=== PATIENT | female | born 1990 | race African-American/Black ===

== ENCOUNTER → 2018-06-07 | Outpatient (REF) | payer BC | LOC: M LAB REF 13:36 | DX: J02.9 Acute pharyngitis, unspecified (principal) | CPT/HCPCS: 87081 ==

== ENCOUNTER 2021-12-27 19:47 | Emergency (ER) | payer BC, OTHER ==
[~2021-12-27] VITALS: Ht 162.6 cm; Wt 90.9 kg
[2021-12-27 19:48] VITALS: BP 148/84
[2021-12-28] MEDS ORDERED: PROPARACAINE 0.5% OPHTH SOL 15ML OS ONE (00:05)
[2021-12-28] MEDS ORDERED: FLUORESCEIN OPHTH 1 MG STRIP OS ONE (00:05)
[2021-12-28] MEDS ORDERED: POLYSOL OP (00:40)
[2021-12-28] MEDS ORDERED: POLYTRIM OPTH DROPS 10ML OS SCH (06:00)
== END 2021-12-28 01:39 | disposition home or self-care (01) ==
LOC: M ED 19:47
DX: T15.12XA Foreign body in conjunctival sac, left eye, initial encounter (principal); H02.844 Edema of left upper eyelid; X58.XXXA Exposure to other specified factors, initial encounter; Y92.511 Restaurant or cafe as the place of occurrence of the external cause; Y99.0 Civilian activity done for income or pay

== ENCOUNTER 2025-03-10 14:49 | Emergency (ER) | payer BC, OTHER ==
[~2025-03-10] VITALS: Ht 162.6 cm; Wt 96.3 kg
[~2025-03-10 14:49] MED LIST: POLYSOL OP
[2025-03-10 15:51] LABS: KETONE, URINE AUTO RFX TRACE mg/dL (NEGATIVE); MUCUS, URINE RFX MODERATE (NEGATIVE); NITRITE, URINE AUTO RFX NEGATIVE (NEGATIVE); RBC, URINE AUTO RFX 11 /HPF (0-3); SQUAM EPITHELIAL CELL UR AURFX 8 /HPF (0-6)
[2025-03-10 15:53] LABS: BASO # 0.0 10^3/uL (0.0-0.2); BASO % 0.2 % (0.0-1.0); EOS # 0.0 10^3/uL (0.0-0.5); EOS % 0.2 % (0.0-3.0); LYMPH # 1.5 10^3/uL (1.5-5.0); LYMPH % 23.8 % (24.0-44.0); MONO # 0.6 10^3/uL (0.0-0.8); MONO % 8.8 % (2.0-8.0); NEUTROPHILS # 4.3 10^3/uL (1.5-8.5); NEUTROPHILS % 66.8 % (36.0-66.0); PLATELET COUNT, AUTOMATED 201 10^3/uL (150-450)
[2025-03-10 16:06] LABS: LEUKOCYTE ESTERASE UR AUTO RFX 3+ (NEGATIVE)
[2025-03-10 16:07] LABS: WBC, URINE AUTO RFX 45 /HPF (0-3)
[2025-03-10 16:19] LABS: ALT/SGPT 25 U/L (7.0-40); AST/SGOT 29 U/L (<34); CALCIUM LEVEL 8.9 MG/DL (8.5-10.1); CARBON DIOXIDE LEVEL 22 MMOL/L (20-31); CHLORIDE LEVEL 104 MMOL/L (98-107); CREATININE FOR GFR 0.83 MG/DL (0.55-1.30); GLOMERULAR FILTRATION RATE > 90.0 (>60); POTASSIUM SERUM 4.7 MMOL/L (3.5-5.1); SODIUM LEVEL 138 MMOL/L (136-145)
[2025-03-10 16:40] LABS: HCG, SERUM QUALITATIVE NEGATIVE (NEGATIVE)
[2025-03-10] MEDS: cefTRIAXone SOD 1 GM in DEXTROSE 5% (D5W) ADV/MINI-BAG 50 ML IV ONE (17:28)
[2025-03-10] MEDS: KETOROLAC 30 MG/ML 1 ML VIAL IV ONE (17:30)
[2025-03-10] MEDS: ONDANSETRON 4MG 2ML VIAL IV ONE (17:30)
[2025-03-10] MEDS ORDERED: CEFD1CAP9 PO (19:16)
[2025-03-10] MEDS ORDERED: ONDA-282 PO (19:16)
[2025-03-10 19:27] VITALS: BP 119/57; TEMP 98.8; O2SAT 100
== END 2025-03-10 19:30 | disposition home or self-care (01) ==
LOC: M ED 14:49 → EDBD 14:49 → M ED 19:30
DX: N39.0 Urinary tract infection, site not specified (principal); N10 Acute pyelonephritis; F17.210 Nicotine dependence, cigarettes, uncomplicated
CPT/HCPCS: 74176; 80048; 80076; 81001; 83690; 84703; 85025; 87086; 96365; 96366; 96375; 99284; J0696; J1885; J2405

== ENCOUNTER → 2025-04-27 | Outpatient (REF) | payer BC ==
[~2025-04-27] MED LIST changes: +CEFD1CAP9 PO; +ONDA-282 PO
[2025-04-27 12:54] LABS: CREATININE, URINE 121.9 MG/DL; MALB URINE SIEMENS < 3.0 MG/L
[2025-04-27 15:01] LABS: PLATELET COUNT, AUTOMATED 247 10^3/uL (150-450)
[2025-04-27 15:21] LABS: ALT/SGPT 22 U/L (7.0-40); AST/SGOT 20 U/L (<34); CALCIUM LEVEL 9.0 MG/DL (8.5-10.1); CARBON DIOXIDE LEVEL 26 MMOL/L (20-31); CHLORIDE LEVEL 104 MMOL/L (98-107); CREATININE FOR GFR 0.85 MG/DL (0.55-1.30); GLOMERULAR FILTRATION RATE > 90.0 (>60); POTASSIUM SERUM 4.8 MMOL/L (3.5-5.1); SODIUM LEVEL 137 MMOL/L (136-145)
== END ==
LOC: M LAB REF 11:59
PROVIDERS: ATTEND Student in an Organized Health Care Education/Training Program
DX: R53.82 Chronic fatigue, unspecified (principal); Z87.440 Personal history of urinary (tract) infections